=== PATIENT | female | born 1990 | race African-American/Black ===

== ENCOUNTER 2017-12-18 18:55 | Emergency (ER) | payer MEDICAID ==
[~2017-12-18] VITALS: Ht 167.6 cm; Wt 97.1 kg
[2017-12-19] MEDS ORDERED: KETOROLAC TROMETH 60MG/2ML VIAL IM ONE (00:45)
[2017-12-19 02:45] VITALS: BP 136/83
== END 2017-12-19 02:55 | disposition home or self-care (01) ==
LOC: ER 18:59
DX: J02.8 Acute pharyngitis due to other specified organisms (principal); B08.8 Other specified viral infections characterized by skin and mucous membrane lesions
CPT/HCPCS: 71250; 81025; 96372; 99285; J1885